=== PATIENT | female | born 1965 | race Caucasian/White ===

== ENCOUNTER 2017-11-15 16:27 | Observation (INO) ==
[2017-11-15] MEDS ORDERED: Aspirin 325 MG Tablet PO ONE (16:48)
--- NOTE | 2017-11-15 16:51 | ED ---
HPI General Chief Complaint: Weakness Stated Complaint: Chest Pain Source: patient, family, RN notes reviewed and old records reviewed Mode of arrival: ambulatory Limitations: no limitations History of Present Illness HPI narrative: 52 y/o female presents with today while she was biking developing chest pain and near syncope with nausea. She states over the past couple months she has had varying symptoms but today concerned her enough to come in. Currently she denies other specific complaints at this time. Quality is pressure. Severity is moderate. She denies taking aspirin prior to arrival. She states she was told she had high blood pressure in the past but she had too many side effects to the medication so she is not on any currently. She notes multiple family members with cardiac history. MD complaint: chest pain Onset (ago): day(s) Duration: intermittent Pain location: left chest Severity: moderate Pain radiation: none Relieving factors: nothing Exacerbating factors: exertion Associated symptoms: nausea Treatments prior to arrival chest pain: none Related Data Home Medications Medication Instructions Recorded Confirmed No Known Home Medications 11/15/17 11/15/17 Allergies Allergy/AdvReac Type Severity Reaction Status Date / Time acetaminophen Allergy Hives Verified 11/15/17 16:37 dextromethorphan AdvReac Palpitation Verified 11/15/17 16:37 [From NyQuil] s diphenhydramine AdvReac Palpitation Verified 11/15/17 16:37 s doxylamine [From NyQuil] AdvReac Palpitation Verified 11/15/17 16:37 s pseudoephedrine [From NyQuil] AdvReac Palpitation Verified 11/15/17 16:37 s Review of Systems ROS: all other systems reviewed are negative PMFSH History History Provided By: Patient (hypertension) Medical History Medical History Patient denies medical problems (Acute) Surgical History Surgical History No history of previous surgery (Acute) Social History Social History Substance History: No History of Abuse Second Hand Smoke Exposure: No Smoking Status: Never smoker How Often Do You Have a Drink Containing Alcohol: 2 to 4 times a month Recent Travel in [facility] within the Last 8 Weeks: No Recent Out of Country Travel within the Last 8 Weeks: No Exam Narrative Exam Narrative: GENERAL: 52 y/o female in no apparent distress SKIN: Focused skin assessment warm/dry. HEAD: Atraumatic. Normocephalic. EYES: Pupils equal and round. No scleral icterus. No injection or drainage. ENT: No nasal bleeding or discharge. Mucous membranes pink and moist. NECK: Trachea midline. No JVD. CARDIOVASCULAR: Regular rate and rhythm. No murmur appreciated. RESPIRATORY: No accessory muscle use. Clear to auscultation. Breath sounds equal bilaterally. GASTROINTESTINAL: Abdomen soft, non-tender, nondistended. MUSCULOSKELETAL: No obvious deformities. No clubbing. No cyanosis. No edema. NEUROLOGICAL: Awake and alert. No obvious cranial nerve deficits. Motor grossly within normal limits. Normal speech. Course Reevaluation(s) Reevaluation #1: ER workup no emergent process, after lengthy discussion agrees to chest pain center observation Consultations Consultation #1: dr brothers agrees to admit Initial Documented Vital Signs Temperature 98.1 F 11/15/17 16:30 Pulse Rate 100 H 11/15/17 16:30 Respiratory Rate 16 11/15/17 16:30 Blood Pressure 142/94 H 11/15/17 16:30 Pulse Oximetry 96 11/15/17 16:30 Last Documented Vital Signs Temperature 98.1 F 11/15/17 16:30 Pulse Rate 107 H 11/15/17 17:14 Respiratory Rate 16 11/15/17 17:14 Blood Pressure 141/79 H 11/15/17 17:14 Pulse Oximetry 97 11/15/17 17:14 Medical Decision Making [facility] Narrative Medical decision making narrative: Will check blood work, x-ray, imaging and dose with aspirin and reevaluate Medical Screen Exam Complete: Yes Emergency Medical Condition: Yes Differential Diagnosis Differential Diagnosis: Musculoskeletal, anxiety, gastritis, cardiac Lab Data Lab results reviewed: Yes I reviewed the patient's lab results. Result diagrams: 11/15/17 16:55 11/15/17 16:55 Lab Results 11/15/17 11/15/17 11/15/17 Range/Units 16:55 16:55 16:55 CBC w Diff Auto diff final WBC 8.2 (4.0-11.0) th/mm3 RBC 5.12 (4.00-5.30) mil/mm3 Hgb 15.0 (11.6-15.3) gm/dL Hct 43.1 (35.0-46.0) % MCV 84.1 (80.0-100.0) fL MCH 29.4 (27.0-34.0) pg MCHC 34.9 (32.0-36.0) % RDW 12.9 (11.6-17.2) % Plt Count 284 (150-450) th/mm3 MPV 8.4 (7.0-11.0) fL Neut % (Auto) 66.4 (16.0-70.0) % Lymph % (Auto) 24.8 (9.0-44.0) % Leon % (Auto) 6.7 (0.0-8.0) % Eos % (Auto) 1.5 (0.0-4.0) % Baso % (Auto) 0.6 (0.0-2.0) % Neut # (Auto) 5.5 (1.8-7.7) th/mm3 Lymph # (Auto) 2.0 (1.0-4.8) th/mm3 Leon # (Auto) 0.6 (0.0-0.9) th/mm3 Eos # (Auto) 0.1 (0.0-0.4) th/mm3 Baso # (Auto) 0.0 (0.0-0.2) th/mm3 WBC Differential . Differential Comment . PT 9.7 L (9.8-11.6) sec INR 1.0 Ratio APTT 26.2 (24.3-30.1) sec D-Dimer Quant (PE/DVT) 0.49 (0.00-0.50) mg/L FEU Sodium 139 (136-145) meq/L Potassium 4.0 (3.5-5.1) meq/L Chloride 107 (98-107) meq/L Carbon Dioxide 24.6 (21.0-32.0) meq/L Anion Gap 7 (5-15) meq/L BUN 15 (7-18) mg/dL Creatinine 0.91 (0.50-1.00) mg/dL Estimated GFR 65 L (>89) mL/min Random Glucose 111 H (74-106) mg/dL Calcium 8.8 (8.5-10.1) mg/dL Magnesium 2.2 (1.5-2.5) mg/dL Total Bilirubin 0.6 (0.2-1.0) mg/dL AST 25 (15-37) U/L ALT 33 (10-53) U/L Alkaline Phosphatase 81 (45-117) U/L Total Creatine Kinase 107 (26-192) U/L CK-MB (CK-2) 1.1 (0.5-3.6) ng/mL Troponin I Less than 0.02 L (0.02-0.05) ng/mL Total Protein 8.2 (6.4-8.2) g/dL Albumin 4.2 (3.4-5.0) g/dL Imaging Data Attestation: I personally reviewed and interpreted this imaging study as follows : Radiologist's impression: Chest X-Ray 11/15/17 16:41 CONCLUSION: Negative examination. Discharge Plan Discharge Disposition Patient Disposition: 30 Still Patient Discharge Details Diagnosis: Chest pain Physicians Team ED Provider: Lissett Rapp Primary Care Provider: Primary Care Amna Mccain Attending Provider: Regis Brothers ED Status: Admitted Observation Patient
--- NOTE | 2017-11-15 17:03 | XR ---
EXAM DATE: 11/15/2017 5:01 PM EDT AGE/SEX: 52 years / Female INDICATIONS: Chest pain, syncope, rapid heart rate, and nausea. CLINICAL DATA: This is the patient's initial encounter. Patient reports that signs and symptoms have been present for 1 day and indicates a pain score of 5/10. MEDICAL/SURGICAL HISTORY: None. None. COMPARISON: No prior exams available for comparison. FINDINGS: A single AP view of the chest demonstrates the lungs to be symmetrically aerated without evidence of mass, infiltrate or effusion. The cardiomediastinal contours are unremarkable. Osseous structures a re intact. CONCLUSION: Negative examination. Electronically signed by: Imer Garcia MD 11/15/2017 5:02 PM EDT
[2017-11-15 17:06] LABS: Baso % (Auto) 0.6 % (0.0-2.0); Eos # (Auto) 0.1 th/mm3 (0.0-0.4); Eos % (Auto) 1.5 % (0.0-4.0); Hematocrit 43.1 % (35.0-46.0); Lymph % (Auto) 24.8 % (9.0-44.0); Mean Corpuscular HGB Conc 34.9 % (32.0-36.0); Mean Corpuscular Hemoglobin 29.4 pg (27.0-34.0); Mean Corpuscular Volume 84.1 fL (80.0-100.0); Mean Platelet Volume 8.4 fL (7.0-11.0); Mono # (Auto) 0.6 th/mm3 (0.0-0.9); Mono % (Auto) 6.7 % (0.0-8.0); Neut # (Auto) 5.5 th/mm3 (1.8-7.7); Neut % (Auto) 66.4 % (16.0-70.0); Platelet Count 284 th/mm3 (150-450); Red Blood Count 5.12 mil/mm3 (4.00-5.30); Red Cell Distribution Width 12.9 % (11.6-17.2); White Blood Count 8.2 th/mm3 (4.0-11.0)
[2017-11-15 17:13] LABS: Chloride 107 meq/L (98-107); Sodium 139 meq/L (136-145)
[2017-11-15 17:16] LABS: Calcium 8.8 mg/dL (8.5-10.1)
[2017-11-15 17:17] LABS: Albumin 4.2 g/dL (3.4-5.0); Anion Gap 7 meq/L (5-15); Blood Urea Nitrogen 15 mg/dL (7-18); Carbon Dioxide 24.6 meq/L (21.0-32.0); Glucose,Random 111 mg/dL (74-106); Magnesium 2.2 mg/dL (1.5-2.5)
[2017-11-15 17:20] LABS: Alanine Aminotransferase 33 U/L (10-53); Aspartate Aminotransferase 25 U/L (15-37)
[2017-11-15 17:21] LABS: Activated Partial Thrombo Time 26.2 sec (24.3-30.1); Glomerular Filtration Rate 65 mL/min (>89); Prothrombin Time 9.7 sec (9.8-11.6)
[2017-11-15 17:22] LABS: Total Protein 8.2 g/dL (6.4-8.2)
[2017-11-15 17:23] LABS: Alkaline Phosphatase 81 U/L (45-117); Creatine Kinase 107 U/L (26-192)
[2017-11-15 17:33] LABS: D-Dimer 0.49 mg/L FEU (0.00-0.50)
[2017-11-15 17:35] LABS: Creatine Kinase MB 1.1 ng/mL (0.5-3.6)
[2017-11-15] MEDS ORDERED: Melatonin 5 MG Tablet PO PRN (18:32)
--- NOTE | 2017-11-15 18:39 | P.HP ---
History of Present Illness Primary Care Physician: No Primary Care Physician Chief Complaint: chest pain History of Present Illness: This is a 52 year old female with a history of untreated hypertension and hyperlipidemia. She presents to the emergency room because of chest pain. Started this afternoon right before she rode her bike, she developed retrosternal discomfort like her back was pushing into her chest associated with palpitations, nausea, frontal headache and tunnel vision. Symptoms lasted for 30-45 minutes relieved after receiving aspirin and sublingual nitroglycerin in the emergency department. She admits to being under a lot of stress. She also reports of numbness in her fingers. Patient had similar symptom about a week ago at that time she had dizziness and near syncope. Strong family history of cardiac disease. Patient also reports of bilateral leg discomfort like a throbbing sensation and numbness usually in the afternoon. Denies claudication, shortness of breath and diaphoresis. Because of cardiac risk factors, emergency room physician recommended further evaluation. Chest x-ray E interpreted by me with no acute cardiopulmonary disease. EKG interpreted by me with sinus rhythm no ST elevation Review of Systems All other systems reviewed negative except as stated in HPI PMFSH - History History Provided By: Patient (hypertension) - Medical History Medical History: Medical History (Last Updated 11/15/17 @ 18:45 by Regis Brothers MD) Anxiety HLD (hyperlipidemia) HTN (hypertension) - Surgical History Surgical History: Surgical History (Last Updated 11/15/17 @ 18:45 by Regis Brothers MD) History of cranial surgery Hx of tonsillectomy - Family History Family History: Family History (Last Updated 11/15/17 @ 18:46 by Regis Brothers MD) Other Heart disease - Tobacco History Second Hand Smoke Exposure: No Smoking Status: Never smoker - Alcohol History How Often Do You Have a Drink Containing Alcohol: 2 to 4 times a month - Substance Use History Substance History: No History of Abuse - Travel History Recent Travel in the [place] Within the Last 8 Weeks: No Recent Travel Out of the Country Within the Last 8 Weeks: No - Immunization History Tetanus Immunization: Unsure Hx Influenza Vaccine This Season: No Medications and Allergies Active Medications: Active Medications Aspirin (Aspirin) 325 mg PO DAILY SAIRA Clonidine HCl (Catapres) 0.1 mg PO Q6H PRN PRN Reason: SEE LABEL COMMENTS Enalaprilat (Vasotec Inj) 1.25 mg IV.PUSH Q6H PRN PRN Reason: SEE LABEL COMMENTS Morphine Sulfate (Morphine Inj) 1 mg IV.PUSH Q4H PRN PRN Reason: PAIN SCALE 1 TO 10 Nitroglycerin (Nitrostat Sl) 0.4 mg SL Q5M PRN PRN Reason: CHEST PAIN Ondansetron HCl (Zofran Inj) 4 mg IV.PUSH Q6H PRN PRN Reason: NAUSEA Sodium Chloride (Ns Flush) 2 ml IV.FLUSH UNSCH PRN PRN Reason: FLUSH AFTER USING IV ACCESS Sodium Chloride (Ns Flush) 2 ml IV.FLUSH BID SAIRA Sodium Chloride (Ns Flush) 2 ml IV.FLUSH PRN PRN PRN Reason: FLUSH AFTER USING IV ACCESS Allergies Allergy/AdvReac Type Severity Reaction Status Date / Time acetaminophen Allergy Hives Verified 11/15/17 16:37 dextromethorphan AdvReac Palpitation Verified 11/15/17 16:37 [From NyQuil] s diphenhydramine AdvReac Palpitation Verified 11/15/17 16:37 s doxylamine [From NyQuil] AdvReac Palpitation Verified 11/15/17 16:37 s pseudoephedrine [From NyQuil] AdvReac Palpitation Verified 11/15/17 16:37 s Home Medications Medication Instructions Recorded Confirmed Type No Known Home Medications 11/15/17 11/15/17 History Exam Vital signs: Vital Signs 11/15/17 16:30 11/15/17 16:58 11/15/17 16:59 Temperature 98.1 F Pulse Rate 100 H 88 Respiratory Rate 16 Blood Pressure 142/94 H Pulse Oximetry 96 98 11/15/17 17:14 Temperature Pulse Rate 107 H Respiratory Rate 16 Blood Pressure 141/79 H Pulse Oximetry 97 Intake & Output 11/14/17 11/15/17 11/15/17 18:59 06:59 18:59 Weight 102 kg Narrative: GENERAL: Well-developed, well nourished in no distress. She appears anxious. SKIN: Warm and dry. HEAD: Atraumatic. Normocephalic. EYES: Pupils equal and round. No scleral icterus. No injection or drainage. ENT: No nasal bleeding or discharge. Mucous membranes pink and moist. NECK: Trachea midline. No JVD. CARDIOVASCULAR: Regular rate and rhythm. RESPIRATORY: No accessory muscle use. Clear to auscultation. Breath sounds equal bilaterally. No chest wall tenderness GASTROINTESTINAL: Abdomen soft, non-tender, nondistended. MUSCULOSKELETAL: Extremities without clubbing, cyanosis, or edema. No obvious deformities. NEUROLOGICAL: Awake and alert. No obvious cranial nerve deficits. Motor grossly within normal limits. Five out of 5 muscle strength in the arms and legs. Normal speech. PSYCHIATRIC: Appropriate mood and affect; insight and judgment normal. Results - Labs CBC & Chem 7: 11/15/17 16:55 11/15/17 16:55 Labs: Laboratory Results - last 24 hr 11/15/17 11/15/17 11/15/17 16:55 16:55 16:55 CBC w Diff Auto diff final WBC 8.2 RBC 5.12 Hgb 15.0 Hct 43.1 MCV 84.1 MCH 29.4 MCHC 34.9 RDW 12.9 Plt Count 284 MPV 8.4 Neut % (Auto) 66.4 Lymph % (Auto) 24.8 Norton % (Auto) 6.7 Eos % (Auto) 1.5 Baso % (Auto) 0.6 Neut # (Auto) 5.5 Lymph # (Auto) 2.0 Norton # (Auto) 0.6 Eos # (Auto) 0.1 Baso # (Auto) 0.0 WBC Differential . Differential Comment . PT 9.7 L INR 1.0 APTT 26.2 D-Dimer Quant (PE/DVT) 0.49 Sodium 139 Potassium 4.0 Chloride 107 Carbon Dioxide 24.6 Anion Gap 7 BUN 15 Creatinine 0.91 Estimated GFR 65 L Random Glucose 111 H Calcium 8.8 Magnesium 2.2 Total Bilirubin 0.6 AST 25 ALT 33 Alkaline Phosphatase 81 Total Creatine Kinase 107 CK-MB (CK-2) 1.1 Troponin I Less than 0.02 L Total Protein 8.2 Albumin 4.2 - Imaging Impressions Chest X-Ray 11/15/17 16:41 CONCLUSION: Negative examination. Caprini VTE Risk Assessment Caprini VTE Risk Assessment: No/Low Risk (score <= 1) Caprini Risk Assessment Model: Point Value = 1 Point Value = 2 Point Value = 3 Point Value = 5 Age 41-60 Minor surgery BMI > 25 kg/m2 Swollen legs Varicose veins or History of unexplained or recurrent spontaneous Oral contraceptives or hormone replacement Sepsis (< 1 month) Serious lung disease, including pneumonia (< 1 month) Abnormal pulmonary function Acute myocardial infarction Congestive heart failure (< 1 month) History of inflammatory bowel disease Medical patient at bed rest Age 61-74 Arthroscopic surgery Major open surgery (> 45 min) Laparoscopic surgery (> 45 min) Malignancy Confined to bed (> 72 hours) Immobilizing plaster cast Central venous access Age >= 75 History of VTE Family history of VTE Factor V Leiden Prothrombin [id number] Lupus anticoagulant Anticardiolipin antibodies Elevated serum homocysteine Heparin-induced thrombocytopenia Other congenital or acquired thrombophilia Stroke (< 1 month) Elective arthroplasty Hip, pelvis, or leg fracture Acute spinal cord injury (< 1 month) Prophylaxis Regimen: Total Risk Factor Score Risk Level Prophylaxis Regimen 0-1 Low Early ambulation 2 Moderate Order ONE of the following: *Sequential Compression Device (SCD) *Heparin 5000 units SQ BID 3-4 Higher Order ONE of the following medications: *Heparin 5000 units SQ TID *Enoxaparin/Lovenox 40 mg SQ daily (WT < 150 kg, CrCl > 30 mL/min) *Enoxaparin/Lovenox 30 mg SQ daily (WT < 150 kg, CrCl > 10-29 mL/min) *Enoxaparin/Lovenox 30 mg SQ BID (WT < 150 kg, CrCl > 30 mL/min) AND/OR *Sequential Compression Device (SCD) 5 or more Highest Order ONE of the following medications: *Heparin 5000 units SQ TID (Preferred with Epidurals) *Enoxaparin/Lovenox 40 mg SQ daily (WT < 150 kg, CrCl > 30 mL/min) *Enoxaparin/Lovenox 30 mg SQ daily (WT < 150 kg, CrCl > 10-29 mL/min) *Enoxaparin/Lovenox 30 mg SQ BID (WT < 150 kg, CrCl > 30 mL/min) AND *Sequential Compression Device (SCD) Assessment and Plan - Plan This is a 52 year old female with a history of untreated hypertension and hyperlipidemia. She presents to the emergency room because of chest pain asso with palpitations, nausea, frontal headache and tunnel vision. Symptoms lasted for 30-45 minutes relieved after receiving aspirin and sublingual nitroglycerin in the emergency department. She admits to being under a lot of stress. She also reports of numbness in her fingers. Strong family history of cardiac disease. Patient also reports of bilateral leg discomfort like a throbbing sensation and numbness usually in the afternoon. Denies claudication, shortness of breath and diaphoresis. Because of cardiac risk factors, emergency room physician recommended further evaluation. Chest x-ray interpreted by me with no acute cardiopulmonary disease. EKG interpreted by me with sinus rhythm no ST elevation CP. Trend cardiac enzymes. Patient received aspirin will continue, sublingual nitroglycerin as needed. If she rules out for [place], will obtain ECG treadmill test the morning. She does not want Lexiscan even if she cannot complete exercise stress test. Anxiety. I believe this is the main issue here. She has been taking benzodiazepines in the past. Consider BuSpar. Unable to start Vistaril because of risks of palpitations which she gets from diphenhydramine Possible neuropathy. Continue B12 and TSH. Consider Neurontin DVT prophylaxis with SCD and early ambulation Discharge Planning: pt
[2017-11-15] MEDS ORDERED: Ibuprofen 600 MG Tablet PO PRN (18:51)
[2017-11-15 19:03] LABS: Thyroid Stimulating Hormone 2.98 uIU/mL (0.358-3.740)
[2017-11-15] MEDS ORDERED: Morphine Sulfate Inj 2 MG/ML Vial IV.PUSH PRN (19:45)
[2017-11-15 21:48] LABS: Creatine Kinase 107 U/L (26-192)
[2017-11-16 01:12] LABS: Creatine Kinase 143 U/L (26-192)
[2017-11-16] MEDS ORDERED: Aspirin 325 MG Tablet PO SCH (09:00)
--- NOTE | 2017-11-16 09:36 | ECG ---
Date Performed: 11/16/2017 Time Performed: 00:02:33 PTAGE: 52 years EKG: Sinus rhythm NORMAL ECG PREVIOUS TRACING : 11/15/2017 20.54 DOCTOR: Isaías Carvalho Interpretating Date/Time 11/16/2017 09:35:03
[2017-11-16 09:48] VITALS: RESP 16
--- NOTE | 2017-11-16 11:47 | ECG ---
Date Performed: 11/15/2017 Time Performed: 20:54:02 PTAGE: 52 years EKG: Sinus rhythm NORMAL ECG Since the PREVIOUS TRACING , no significant change noted PREVIOUS TRACIN11/15/2017 16.50 DOCTOR: Philip Jeffries Interpretating Date/Time 11/16/2017 11:44:55
--- NOTE | 2017-11-16 11:47 | ECG ---
Date Performed: 11/15/2017 Time Performed: 16:50:41 PTAGE: 52 years EKG: Sinus rhythm POSSIBLE LEFT ATRIAL ENLARGEMENT BORDERLINE ECG Since the previous tracing, no significant change no [place] NO PREVIOUS TRACING DOCTOR: Philip Jeffries Interpretating Date/Time 11/16/2017 11:45:09
--- NOTE | 2017-11-16 12:04 | P.PN ---
Subjective Interval history: Follow-up chest pain. No recurrence of pain slept well. She also reports of chronic lower back pain may be from crushed vertebra history of trauma Physical Exam Vital signs: Vital Signs 11/15/17 16:30 11/15/17 16:58 11/15/17 16:59 Temperature 98.1 F Pulse Rate 100 H 88 Respiratory Rate 16 Blood Pressure 142/94 H Pulse Oximetry 96 98 11/15/17 17:14 11/15/17 18:49 11/15/17 20:00 Temperature 98.1 F Pulse Rate 107 H 84 73 Respiratory Rate 16 16 20 Blood Pressure 141/79 H 136/81 144/83 H Pulse Oximetry 97 98 97 11/16/17 00:00 11/16/17 04:00 11/16/17 08:00 Temperature 96.1 F L 96.2 F L 97.1 F L Pulse Rate 73 80 77 Respiratory Rate 20 20 16 Blood Pressure 130/73 137/91 H 177/98 H Pulse Oximetry 96 96 95 11/16/17 08:17 11/16/17 09:00 Temperature 97.1 F L Pulse Rate 68 Respiratory Rate 16 Blood Pressure 177/98 H Pulse Oximetry 98 95 Intake & Output 11/15/17 11/16/17 11/16/17 18:59 06:59 18:59 Intake Total 240 / 240 Balance 240 / 240 Weight 102 kg 108 kg Intake: Oral 240 / 240 Other: # Voids 3 Date of Last Bowel Movement 11/15/17 Narrative: GENERAL: Well-developed, well nourished in no distress. She appears anxious. SKIN: Warm and dry. CARDIOVASCULAR: Regular rate and rhythm. RESPIRATORY: No accessory muscle use. Clear to auscultation. Breath sounds equal bilaterally. No chest wall tenderness GASTROINTESTINAL: Abdomen soft, non-tender, nondistended. MUSCULOSKELETAL: Extremities without clubbing, cyanosis, or edema. No obvious deformities. NEUROLOGICAL: Awake and alert. No obvious cranial nerve deficits. Motor grossly within normal limits. Five out of 5 muscle strength in the arms and legs. Normal speech. PSYCHIATRIC: Appropriate mood and affect; insight and judgment normal. Results - Labs CBC & Chem 7: 11/15/17 16:55 11/15/17 16:55 Laboratory Results - last 24 hr 11/15/17 11/15/17 11/15/17 16:55 16:55 16:55 CBC w Diff Auto diff final WBC 8.2 RBC 5.12 Hgb 15.0 Hct 43.1 MCV 84.1 MCH 29.4 MCHC 34.9 RDW 12.9 Plt Count 284 MPV 8.4 Neut % (Auto) 66.4 Lymph % (Auto) 24.8 Murray % (Auto) 6.7 Eos % (Auto) 1.5 Baso % (Auto) 0.6 Neut # (Auto) 5.5 Lymph # (Auto) 2.0 Murray # (Auto) 0.6 Eos # (Auto) 0.1 Baso # (Auto) 0.0 WBC Differential . Differential Comment . PT 9.7 L INR 1.0 APTT 26.2 D-Dimer Quant (PE/DVT) 0.49 Sodium 139 Potassium 4.0 Chloride 107 Carbon Dioxide 24.6 Anion Gap 7 BUN 15 Creatinine 0.91 Estimated GFR 65 L Random Glucose 111 H Calcium 8.8 Magnesium 2.2 Total Bilirubin 0.6 AST 25 ALT 33 Alkaline Phosphatase 81 Total Creatine Kinase 107 CK-MB (CK-2) 1.1 Troponin I Less than 0.02 L Total Protein 8.2 Albumin 4.2 Vitamin B12 TSH 11/15/17 11/15/17 11/16/17 16:55 21:05 00:45 CBC w Diff WBC RBC Hgb Hct MCV MCH MCHC RDW Plt Count MPV Neut % (Auto) Lymph % (Auto) Murray % (Auto) Eos % (Auto) Baso % (Auto) Neut # (Auto) Lymph # (Auto) Murray # (Auto) Eos # (Auto) Baso # (Auto) WBC Differential Differential Comment PT INR APTT D-Dimer Quant (PE/DVT) Sodium Potassium Chloride Carbon Dioxide Anion Gap BUN Creatinine Estimated GFR Random Glucose Calcium Magnesium Total Bilirubin AST ALT Alkaline Phosphatase Total Creatine Kinase 107 143 CK-MB (CK-2) Troponin I Less than 0.02 L Less than 0.02 L Total Protein Albumin Vitamin B12 452 TSH 2.980 - Imaging Impressions Chest X-Ray 11/15/17 16:41 CONCLUSION: Negative examination. Assessment and Plan - Plan This is a 52 year old female with a history of untreated hypertension and hyperlipidemia. She presents to the emergency room because of chest pain asso with palpitations, nausea, frontal headache and tunnel vision. Symptoms lasted for 30-45 minutes relieved after receiving aspirin and sublingual nitroglycerin in the emergency department. She admits to being under a lot of stress. She also reports of numbness in her fingers. Strong family history of cardiac disease. Patient also reports of bilateral leg discomfort like a throbbing sensation and numbness usually in the afternoon. Denies claudication, shortness of breath and diaphoresis. Because of cardiac risk factors, emergency room physician recommended further evaluation. Chest x-ray interpreted by me with no acute cardiopulmonary disease. EKG interpreted by me with sinus rhythm no ST elevation CP. Ruled out for [place]. Continue aspirin and sublingual nitroglycerin as needed. Abnormal ECG treadmill pt agrees to proceed with Lexiscan Anxiety. I believe this is the main issue here. She has been taking benzodiazepines in the past. Consider BuSpar. Unable to start Vistaril because of risks of palpitations which she gets from diphenhydramine Possible neuropathy. Unremarkable B12 and TSH. She has history of lower back pain from trauma. Consider Neurontin DVT prophylaxis with SCD and early ambulation Discharge Planning: pt
[2017-11-16] MEDS ORDERED: Regadenoson Inj 0.4 MG/5 ML Syringe IV.PUSH ONE (14:20)
[2017-11-16 15:13] VITALS: BP 169/91; PULSE 77; TEMP 97; O2SAT 94
--- NOTE | 2017-11-16 15:46 | NM ---
EXAM DATE: 11/16/2017 3:42 PM EDT AGE/SEX: 52 years / Female INDICATIONS:Abnormal EKG. . Chest pain. CLINICAL DATA: This is the patient's initial encounter. Patient reports that signs and symptoms have been present for 1 day and indicates a pain score of 0/10. MEDICAL/SURGICAL HISTORY: Hypertension. Hypercholesterolemia. Appendectomy. Cranial surgery. COMPARISON: No prior exams available for comparison. DOSE: 11.0 mCi Tc 99m Myoview at rest 35.0 mCi [id number] at stress 0.4 mg Lexiscan STRESS SYMPTOMS: Dyspnea and headache. EJECTION FRACTION: 70 % TECHNIQUE: The patient underwent pharmacologic stress with infusion of prescribed dose. Continuous ECG tracing was monitored during stress. Gated SPECT imaging was performed after stress and conventi onal SPECT imaging was performed at rest. The examination was performed on a SPECT/CT scanner, both attenuation and non-corrected datasets were reviewed. FINDINGS: Distribution: The maximum perfused segment at stress is in the inferior wall. Perfusion Study: The pattern of perfusion at stress is within normal limits. Gated Study: There are intact wall motion and wall thickening without hypokinetic or dyskinetic segm ents. The ejection fraction is calculated at 70%. RISK CATEGORY: Low (<1% Annual Motality Rate) CONCLUSION: 1. No definite reversible perfusion defects are identified to suggest stress-induced myocardial isch emia. Electronically signed by: Imer Garcia MD 11/16/2017 3:44 PM EDT
[2017-11-17] MEDS ORDERED: amLODIPine 5 MG Tablet PO SCH (09:00)
--- NOTE | 2017-11-17 14:51 | TR ---
Date Performed: 11/16/2017 Time Performed: 14:36:32 DOCTOR: Alex Padilla DRUG LIST: CLINICAL HISTORY: REASON FOR TEST: REASON FOR ENDING: OBSERVATION: CONCLUSION: COMMENTS: Lexiscan stress test was performed under standard four minute protocol. Radionuclide was injected one minute prior to ending the test. No electrocardiographic abormalities were present t o suggest ischemia. Nuclear imaging and interpretation are pending.
--- NOTE | 2017-11-17 14:54 | TR ---
Date Performed: 11/16/2017 Time Performed: 09:51:43 DOCTOR: Alex Padilla DRUG LIST: CLINICAL HISTORY: REASON FOR TEST: REASON FOR ENDING: OBSERVATION: CONCLUSION: Hoang protocol completed, test stopped secondary to reaching target heart rate. Good exercise tolerance. No reproducible chest discomfort. Some mild depression starting activity in lead s II and III. Resolved during recovery. Good BP response. Maximum OY=222 Target HR Sypkllio=604.0% Ma ximum UL=204/92 Total Exercise Time=5:02 COMMENTS: Patient exercised using the Hoang protocol. No electrocardiographic changes were seen to suggest ischemia. Hemodynamic response to exercise was normal. No significant arrhythmia was prese nt.
== END 2017-11-16 17:34 | disposition home or self-care (01) ==
LOC: PHED 16:27 → PHEDA 16:27 → PH3 18:52
PROVIDERS: ADMIT Internal Medicine; ATTEND Internal Medicine
DX: G89.29 Other chronic pain; I10 Essential (primary) hypertension; R94.31 Abnormal electrocardiogram [ECG] [EKG]; Z82.49 Family history of ischemic heart disease and other diseases of the circulatory system; Z88.6 Allergy status to analgesic agent; M54.5 Low back pain; R07.9 Chest pain, unspecified; F41.9 Anxiety disorder, unspecified; E78.5 Hyperlipidemia, unspecified